=== PATIENT | female | born 1965 | race Caucasian/White ===

== ENCOUNTER → 2016-11-03 | Outpatient (CLI) | payer BC ==
[2016-11-03 13:25] LABS: Follicle Stimulating Hormone 10.3 mIU/mL
== END | disposition home or self-care (01) ==
LOC: LABWHC1 07:16
PROVIDERS: ATTEND Obstetrics & Gynecology
DX: N95.0 Postmenopausal bleeding (principal)
CPT/HCPCS: 36415; 82670; 83001

== ENCOUNTER → 2019-08-12 | Day surgery (SDC) | payer BC ==
[2019-08-08 15:08] VITALS: BMI 21.1
--- NOTE | 2019-08-11 21:57 | HP ---
HISTORY AND PHYSICAL DIAGNOSES: Bilateral renal stones, recurrent urinary tract infection. PROCEDURE TO BE PERFORMED.: Shockwave lithotripsy right. HISTORY: Dai Reyes is a pleasant 54-year-old female. She has a history of recurrent urinary tract infections. She recently was in the hospital with a question of a kidney infection. She had percutaneous nephrostolithotomy in 2013. She had x-rays identifying 1.2 cm stone in the left lower pole and a 9 mm stone in the right middle pole. There is question of whether these stones are infected. She has been recently on antibiotics. In light of the recurrent infection, no obvious cause of infection, persistence of stones, we are going to try to remove the stones. She comes for right- sided shockwave lithotripsy. PAST MEDICAL HISTORY: ALLERGIES: None. MEDICATIONS: Bactrim and iron. PREVIOUS SURGICAL HISTORY: Includes percutaneous nephrostolithotomy. MEDICAL ILLNESSES: Positive for urinary tract infection. The most recent being E. coli in May and June of this past year. Past medical history of allergies none. Medical history as mentioned, surgical history as mentioned earlier. Review of systems negative. REVIEW OF SYSTEMS: Negative. PHYSICAL EXAMINATION: On examination, pleasant white female. VITAL SIGNS: Stable. Blood pressure is 118/78, pulse 98, respiration 14. 67 inches, 141 pounds. HEENT exam is clear. CHEST: Clear to auscultation. Heart is without murmur or gallop. ABDOMEN: Soft. No organomegaly. EXTREMITIES: No edema. Neurologic examination grossly intact. IMPRESSION: This patient has bilateral renal stones. She comes for right-sided shockwave lithotripsy. MMODL / IJN: [id number] /
[~2019-08-12] MED LIST: KETAMINE 10 MG/ML 20 ML VIAL ONE; LACTATED RINGERS 1,000 ML IV SCH; LIDOCAINE 1% (10MG/ML) FOR IV START INTRADERMA PRN; LIDOCAINE 1% INJ 10MG/ML (20 ML MDV) ONE; MIDAZOLAM 2 MG/2 ML VIAL ONE; ONDANSETRON 4 MG/2 ML VIAL IVP ONE; PROPOFOL 10 MG/ML 20 ML VIAL IV ONE; Pre Op ABX Message 1 EACH MISC MISCELLANE ONE; fentaNYL (PF) 50 MCG/ML 2 ML AMP ONE
[2019-08-12 08:57] VITALS: RESP 16; TEMP 96.8
--- NOTE | 2019-08-12 10:40 | P.OP ---
Date of Procedure: 08/12/19 Preoperative Diagnosis: right sided renal stones Postoperative Diagnosis: same Procedure(s) Performed: right ESWL Implants: none Anesthesia: NAVA Surgeon: Ronnie Dillard Estimated Blood Loss (ml): 0 Pathology: none sent Condition: stable Disposition: PACU Indications for Procedure: Ms Reyes is 54 yo with hx of bilateral renal stone, she presents today to address her right sided renal calculi. She is symptomatic from her stones. I discussed the option of ESWL. She agreed to proceed with ESWL, I discussed with her risk which includes bleeding, infection, renal hematoma, potential need for repeated treatment. I also discussed with her the risk from anesthesia. I also discussed with her potential that we might need repeated treatment to completely address her right sided stone burden. She understood all risks and agreed to proceed Operative Findings: right sided radioopaque renal stone Description of Procedure: The patient was taken to the operating room and placed on the Dornier Compact Delta lithotripter in the supine position. The calculus was seen on biplanar fluoroscopy. Once the patient was properly positioned and sedated, lithotripsy was performed. The energy level was gradually increased per protocol, to an energy level of 4 for first 1800 shocks, then increased to 5 for the additional 700 shocks. A total of 2500 shocks were given at a rate of 80 shocks per minute. Fluoroscopy was utilized at a minimum to ensure proper positioning and determine the treatment status. There was good fragmentation of stone . The patient tolerated the procedure well was taken to the recovery room in stable condition. Instructions were given to strain the urine, and the patient will follow-up with Dr. Burciaga in one week.
[2019-08-12 11:15] VITALS: BP 119/81; PULSE 83
--- NOTE | 2019-08-12 14:08 | XR ---
KUB HISTORY: Preop lithotripsy Frontal KUB submitted and correlated to prior abdomen 08/20/2013 Oval calcification is present overlying the left renal pelvis measuring 17 mm. There is an oval calci fication overlying the right kidney midpole region measuring 11 mm. Overlying bowel gas obscures unde rlying detail. Retained fecal debris may be indicative of constipation. No pneumoperitoneum or bowel obstruction. Bone mineralization is normal. IMPRESSION: Suspect bilateral nephrolithiasis
== END ==
LOC: ORWHC2ENDO 08:10
PROVIDERS: ATTEND Urology
DX: N20.0 Calculus of kidney (principal); N39.0 Urinary tract infection, site not specified; Z87.440 Personal history of urinary (tract) infections; Z98.890 Other specified postprocedural states
CPT/HCPCS: 81025; 74018; 50590; J2250; J2405; J2001; J3010; J2704

== ENCOUNTER → 2019-08-22 | Outpatient (CLI) | payer BC ==
--- NOTE | 2019-08-22 08:32 | XR ---
EXAMINATION TYPE: XR KUB DATE OF EXAM: 08/22/2019 COMPARISON: 08/12/2019 INDICATION: Renal calculus TECHNIQUE: Single view abdomen frontal projection FINDINGS: There is an normal bowel gas pattern. Fecal debris is within the colon. Psoas margins are normal. No organomegaly is present. There is a 1.7 cm oval calcification overlying the inferior pole left kidney. This is changed positio n with some rotation but is otherwise stable. Previous right and suspected calcification is not evide nt at this time. No additional suspicious calcifications are present. IMPRESSION: 1. Stable 1.7 cm calcification inferior pole left kidney with some rotation in position.
== END | disposition home or self-care (01) ==
LOC: RADXRMAIN 08:14
PROVIDERS: ATTEND Urology
DX: N20.0 Calculus of kidney (principal)
CPT/HCPCS: 74018

== ENCOUNTER → 2019-10-31 | Outpatient (CLI) | payer BC ==
--- NOTE | 2019-10-31 11:54 | XR ---
EXAMINATION TYPE: XR KUB DATE OF EXAM: 10/31/2019 COMPARISON: 08/22/2019 INDICATION: Left renal stone TECHNIQUE: Single view abdomen frontal supine view FINDINGS: There is a normal bowel gas pattern. Psoas margins are normal. No organomegaly is present. There is a 1.8 x 1.0 cm calcification over the left renal pelvic region this may have moved slightly from the comparison study. No additional suspicious calcifications are present. IMPRESSION: 1. Calcification in the region of the left renal pelvis.
== END | disposition home or self-care (01) ==
LOC: RADXRMAIN 10:44
PROVIDERS: ATTEND Urology
DX: N28.89 Other specified disorders of kidney and ureter (principal)
CPT/HCPCS: 74018

== ENCOUNTER → 2019-11-29 | Outpatient (CLI) | payer BC ==
[2019-11-29 07:58] LABS: Basophils % (A) 1 %; Eosinophils # (A) 0.2 k/uL (0-0.7); Eosinophils % (A) 3 %; HCT 39.5 % (34.0-46.0); HGB 12.1 gm/dL (11.4-16.0); Lymphocytes # (A) 1.6 k/uL (1.0-4.8); Lymphocytes % (A) 30 %; MCH 28.4 pg (25.0-35.0); MCHC 30.5 g/dL (31.0-37.0); Mean Platelet Volume 9.7; Monocytes # (A) 0.4 k/uL (0-1.0); Monocytes % (A) 7 %; Neutrophils # (A) 3.2 k/uL (1.3-7.7); Neutrophils % (A) 58 %; Platelet Count 209 k/uL (150-450); RBC 4.25 m/uL (3.80-5.40); RDW 13.6 % (11.5-15.5); WBC 5.5 k/uL (3.8-10.6)
[2019-11-29 08:02] LABS: Appearance,Urine Cloudy (Clear); Bacteria,Urine Rare /hpf; Bilirubin,Urine Negative (Negative); Blood,Urine Small (Negative); Color,Urine Yellow; Glucose,Urine (UA) Negative (Negative); Hyaline Casts,Urine 7 /lpf (0-2); Ketones,Urine Negative (Negative); Leukocyte Esterase,Urine Large (Negative); Mucus,Urine Moderate /hpf; Nitrite,Urine Positive (Negative); Protein,Urine 2+ (Negative); RBC,Urine 41 /hpf (0-5); Specific Gravity,Urine 1.019 (1.001-1.035); Squamous Epithelial Cell,Urine 1 /hpf (0-4); Urobilinogen,Urine <2.0 mg/dL (<2.0); WBC,Urine >182 /hpf (0-5)
[2019-11-29 08:11] LABS: Albumin 3.9 g/dL (3.5-5.0); Calcium 9.3 mg/dL (8.4-10.2); Potassium 4.2 mmol/L (3.5-5.1); Total Bilirubin 0.3 mg/dL (0.2-1.3); Total Protein 6.6 g/dL (6.3-8.2)
== END | disposition home or self-care (01) ==
LOC: LABPAT 07:10
PROVIDERS: ATTEND Urology
DX: Z01.818 Encounter for other preprocedural examination (principal); N20.0 Calculus of kidney
CPT/HCPCS: 36415; 80053; 81001; 85025; 87077; 87086; 87186

== ENCOUNTER 2019-12-11 06:27 | Observation (INO) | payer BC ==
[2019-12-09 10:33] VITALS: BMI 21.1
--- NOTE | 2019-12-10 12:15 | P.GSHP ---
History of Present Illness H&P Date: 12/10/19 54 yo female with a histroy of stones with an 18mm left renal pelvic stone identified on ct scan at [facility] She comes for a pcnl left the alternatives and risks havee been discussed including injury to the adjacent organs,failure to remove all the stone, bleeding infeection and kidney injury have been explained understood and accepted. - Constitutional Constitutional: Denies chills, Denies fever - EENT Eyes: denies blurred vision, denies pain Ears, nose, mouth and throat: Denies headache, Denies sore throat - Cardiovascular Cardiovascular: Denies chest pain, Denies shortness of breath - Respiratory Respiratory: Denies cough, Denies 7 - Gastrointestinal Gastrointestinal: Denies abdominal pain, Denies diarrhea, Denies nausea, Denies vomiting - Genitourinary (Female) Genitourinary: Denies dysuria, Denies hematuria - Genitourinary (Male) Genitourinary: Denies dysuria, Denies hematuria - Musculoskeletal Musculoskeletal: Denies myalgias - Integumentary Integumentary: Denies pruritus, Denies rash - Neurological Neurological: Denies numbness, Denies weakness - Psychiatric Psychiatric: Denies anxiety, Denies depression - Endocrine Endocrine: Denies fatigue, Denies weight change Past Medical History Past Medical History: Cancer Additional Past Medical History / Comment(s): HX OF BREAST CANCER WITH LUMPECTOMY & RADIATION (2011), KIDNEY STONES, LOW IRON/anemia, on rx for UTI History of Any Multi-Drug Resistant Organisms: None Reported Past Surgical History: Breast Surgery Additional Past Surgical History / Comment(s): SURGERY FOR KIDNEY STONES (2013), rt breast lumpectomy, lithotripsy Past Anesthesia/Blood Transfusion Reactions: Postoperative Nausea & Vomiting (PONV) Past Psychological History: No Psychological Hx Reported Past Alcohol Use History: Occasional Past Drug Use History: None Reported - Past Family History Mother Family Medical History: No Reported History Medications and Allergies Home Medications Medication Instructions Recorded Confirmed Type Sulfamethox-Tmp 800-160Mg [Bactrim 1 tab PO Q12HR 12/10/19 12/10/19 History DS 800-160 mg] Allergies Allergy/AdvReac Type Severity Reaction Status Date / Time No Known Allergies Allergy Verified 12/09/19 10:26 Surgical - Exam - General well developed, well nourished, no distress - Eyes PERRL - ENT no hearing loss - Neck trachea midline - Respiratory normal expansion, normal respiratory effort - Cardiovascular Rhythm: regular - Abdomen Abdomen: soft, non tender - Integumentary no rash, no growths - Neurologic normal coordination, normal sensation - Musculoskeletal normal gait, normal posture - Psychiatric oriented to time, oriented to person, oriented to place, speech is normal, memory intact Results - Imaging Abdominal x-ray: report reviewed, image reviewed CT scan - abdomen: report reviewed, image reviewed CT scan - pelvis: report reviewed, image reviewed Assessment and Plan Assessment: Impression: left renal stone PLan pcnl left
[~2019-12-11 06:27] MED LIST changes: +AMPICILLIN 1,000 MG in SODIUM CHLORIDE 0.9% 50 ML IVPB ONE; +DEXAMETHASONE SOD PHOSPHATE 10 MG/ML 1 ML VIAL IV ONE; +HYDROmorphone 0.5 MG/0.5 ML SYRINGE IVP PRN; -KETAMINE 10 MG/ML 20 ML VIAL ONE; -LIDOCAINE 1% INJ 10MG/ML (20 ML MDV) ONE; +MIDAZOLAM 2 MG/2 ML VIAL IV PRN; -MIDAZOLAM 2 MG/2 ML VIAL ONE; -PROPOFOL 10 MG/ML 20 ML VIAL IV ONE; -Pre Op ABX Message 1 EACH MISC MISCELLANE ONE; +fentaNYL (PF) 50 MCG/ML 2 ML AMP IVP PRN; -fentaNYL (PF) 50 MCG/ML 2 ML AMP ONE
[2019-12-11] MEDS ORDERED: ONDANSETRON 4 MG/2 ML VIAL ONE (07:08)
[2019-12-11] MEDS ORDERED: GLYCOPYRROLATE 0.2 MG/ML 2 ML VIAL ONE (07:50)
[2019-12-11] MEDS ORDERED: SUCCINYLCHOLINE CHLORIDE 100 MG/5 ML SYR IV ONE (07:50)
[2019-12-11] MEDS ORDERED: PROPOFOL 10 MG/ML 20 ML VIAL IV ONE (07:50)
[2019-12-11] MEDS ORDERED: fentaNYL (PF) 50 MCG/ML 2 ML AMP ONE (07:50)
[2019-12-11] MEDS ORDERED: MIDAZOLAM 2 MG/2 ML VIAL ONE (07:50)
[2019-12-11] MEDS ORDERED: ROCURONIUM BROMIDE 10 MG/ML 5 ML VIAL IV ONE (07:50)
[2019-12-11] MEDS ORDERED: NEOSTIGMINE 1 MG/ML 10 ML VIAL ONE (07:50)
[2019-12-11] MEDS ORDERED: LIDOCAINE 1% INJ 10MG/ML (20 ML MDV) ONE (07:50)
--- NOTE | 2019-12-11 08:15 | XR ---
KUB HISTORY: Kidney stones KUB and 2 images Correlated to prior KUB 10/31/2019 The exam is stable. There is a large amount of retained fecal debris present. Oval calcification supe rimposed of the left renal pelvis is unchanged. No pneumoperitoneum or bowel obstruction. IMPRESSION: Left nephrolithiasis.
[2019-12-11] MEDS: GENTAMICIN 90 MG in SODIUM CHLORIDE 0.9% 100 ML IVPB ONE ×3 (08:30→08:40)
[2019-12-11] MEDS ORDERED: IOPAMIDOL-370 50ML BTL MISCELLANE ONE (08:31)
[2019-12-11] MEDS ORDERED: LACTATED RINGERS 1,000 ML IV ONE (08:57)
[2019-12-11] MEDS ORDERED: MAG HYDROX/AL HYDROX/SIMETH 30 ML CUP PO PRN (09:06)
[2019-12-11] MEDS ORDERED: ACETAMINOPHEN TAB 325 MG TAB PO PRN (09:06)
[2019-12-11] MEDS ORDERED: ONDANSETRON 4 MG/2 ML VIAL IVP PRN (09:06)
[2019-12-11] MEDS ORDERED: HYDROmorphone PCA 10 MG/50 ML BAG IV PRN (09:08)
[2019-12-11] MEDS ORDERED: NALOXONE 0.4 MG/ML 1 ML VIAL IV PRN (09:08)
--- NOTE | 2019-12-11 09:13 | P.OP ---
Date of Procedure: 12/11/19 Preoperative Diagnosis: Left renal calculus Postoperative Diagnosis: Same Procedure(s) Performed: Cystoscopy, placement of occluding balloon catheter left, percutaneous nephrostomy tube placement (Dr. Funes) percutaneous nephrostolithotomy at ultrasound, placement of 10 J nephrostomy Anesthesia: NAVA Surgeon: Jerzy Burciaga Estimated Blood Loss (ml): 50 Pathology: other (Stone) Condition: stable Disposition: PACU Indications for Procedure: The patient is 54. She has a history of kidney stones. She has a 17 and 18 mm UPJ stone. She comes for percutaneous nephrostolithotomy left Description of Procedure: Patient is brought to the operating suite. She is given a general endotracheal anesthesia on the transport gurney. She's placed in a frog position with a sterile prep and drape. Cystoscopy with a Foroblique lens and 22-Malaysian sheath identifies a normal urethra. There is chronic cystitis cystica on the floor the bladder. The left ureteral orifice is identified and intubated with a 5-Malaysian occluding balloon catheter that's passed up into the renal pelvis A Ortiz catheters placed and secured to the ureteral catheter She's placed in a prone position with care to airways and extremities. Dr. Funes of radiology performed percutaneous nephrostomy access to the left lower pole calyx. I dilate the tract to 30-Malaysian. I introduced the rigid nephroscope into the collecting system. I irrigate out CLOT. With ultrasound the left renal pelvic stone was identified fractured and the larger pieces are removed. At the end of procedure looked throughout the collecting system there is no remaining stone. A 10-Malaysian J nephrostomy tubes placed over the working wire and secured to the skin. The patient's awake and returned recovery in good condition. The stone we sent to pathology. Blood loss is less than 50 mL. She tolerated procedure well and will be observed in the hospital overnight.
[2019-12-11] MEDS: DEXTROSE 5%-0.45% NACL 1,000 ML IV SCH ×2 (10:35→18:31)
--- NOTE | 2019-12-11 10:35 | FL ---
EXAMINATION TYPE: FL Perc Nephrostomy New Access DATE OF EXAM: 12/11/2019 COMPARISON: CT 2014 HISTORY: Left renal pelvic calcification. PROCEDURE: Maximal barrier technique was utilized, hand hygiene obtained with soap and water and alcohol-based h and rub. The skin overlying the left kidney was localized using fluoroscopy and the overlying skin p repped and draped. Skin sacha was made with a scalpel. Access was gained under fluoroscopy, following placement of a ureteral occlusion balloon by the referring clinician and instillation of air in the renal collecting system with a 21-gauge needle to the left kidney. A suitable posterior calyx was ch osen. A 0.018 inch wire was advanced. The access site was dilated , access site was upsized, safet y wire deployed and subsequently a sheath was advanced into the renal pelvis following dilation with balloon along the tract. The patient underwent nephrolithotomy by the referring clinician. The mohit ent remained in stable condition without complication. The patient was discharged to observation in the care of anesthesia. 4 minutes 16 seconds fluoroscopy time, 3 intraoperative images document the procedure IMPRESSION: STATUS POST NEPHROSTOMY PLACEMENT FOR NEPHROLITHOTOMY WITH FLUOROSCOPIC GUIDANCE. THIS PROCEDURE PER FORMED BY THE UNDERSIGNED.
[2019-12-11] MEDS: SULFAMETHOX-TMP 800-160MG 1 EACH TAB PO SCH (19:41)
[2019-12-11] MEDS: KETOROLAC 30 MG/ML 1 ML VIAL IVP PRN (19:41)
[2019-12-11 21:02] VITALS: RESP 18
[2019-12-12] MEDS: DEXTROSE 5%-0.45% NACL 1,000 ML IV SCH (06:26)
[2019-12-12] MEDS: SULFAMETHOX-TMP 800-160MG 1 EACH TAB PO SCH (08:17)
[2019-12-12] MEDS: KETOROLAC 30 MG/ML 1 ML VIAL IVP PRN (08:17)
--- NOTE | 2019-12-12 08:17 | P.DS ---
Providers Date of admission: 12/11/19 23:14 Expected date of discharge: 12/12/19 Attending physician: Jerzy Burciaga Primary care physician: Leonard Dowling MD Hospital Course: The patient is a 54-year-old female who was discovered to have a 18 millimeter calculus in the left renal pelvis. In view of the size of the calculus percutaneous nephrostolithotomy was recommended. The patient was admitted on 12/10 and underwent left percutaneous nephrostolithotomy performed by Dr. Burciaga. A nephrostomy catheter was left following the procedure. The patient remained afebrile and relatively comfortable following the procedure. She was ambulatory and tolerating a diet the time of discharge on the first day postop. The nephrostomy tube will remain in place until she is seen by Dr. Burciaga next week. She was started on Bactrim prior to the procedure and will continue this until she is seen in the office. Procedures: Left percutaneous nephrostolithotomy 12/11/2019 Patient Condition at Discharge: Good Plan - Discharge Summary Discharge Rx Participant: No New Discharge Prescriptions: No Action Sulfamethox-Tmp 800-160Mg [Bactrim DS 800-160 mg] 1 tab PO Q12HR Discharge Medication List Sulfamethox-Tmp 800-160Mg [Bactrim DS 800-160 mg] 1 tab PO Q12HR 12/10/19 [History] Follow up Appointment(s)/Referral(s): Jerzy Burciaga MD [STAFF PHYSICIAN] - 12/16/19 Patient Instructions/Handouts: Hydromorphone (By injection), Percutaneous Nephrolithotomy (DC), Fibromyalgia (ED), Patient Controlled Analgesia (GEN), Pain Management After Surgery (GEN) Discharge Disposition: HOME SELF-CARE
[2019-12-12 09:06] VITALS: BP 97/52; PULSE 79; TEMP 97.8
== END 2019-12-12 11:33 | disposition home or self-care (01) ==
LOC: OR 06:27 → 6PED 09:34 → OR 23:42
PROVIDERS: ADMIT Urology; ATTEND Urology
DX: N20.0 Calculus of kidney (principal); N30.20 Other chronic cystitis without hematuria; Z85.3 Personal history of malignant neoplasm of breast; Z98.890 Other specified postprocedural states; Z92.3 Personal history of irradiation; Z87.442 Personal history of urinary calculi; Z86.2 Personal history of diseases of the blood and blood-forming organs and certain disorders involving the immune mechanism; Z91.89 Other specified personal risk factors, not elsewhere classified
CPT/HCPCS: 81025; 86900; 86901; 86850; 82365; 50432; 74018; 50080; 52000; G0378 ×2; C1769 ×4; C2628; C1729 ×2; C1894; J2250; J1100; J2710; J2405; J2001; J3010; J1885 ×2; J1580; J0290; J0330; J2704; J1170 ×2; Q9967

== ENCOUNTER → 2021-01-28 | Outpatient (CLI) | payer BC ==
--- NOTE | 2021-01-29 08:43 | XR ---
EXAMINATION TYPE: XR KUB DATE OF EXAM: 01/28/2021 HISTORY: Pain Comparison: 12/11/2019 Single KUB is submitted for interpretation. Findings: Right renal calculi: None Visualized. Right ureteral calculi: None Visualized. Left renal calculi: 4.3 mm calculus overlies the left kidney. Previously noted large calculus is no longer present. Left ureteral calculi: None Visualized. Pelvic calcifications: None Visualized. Bowel gas pattern is unremarkable. No free air. No mass effects. IMPRESSION: 1. 4.3 mm calculus left kidney.
== END | disposition home or self-care (01) ==
LOC: RADXRMAIN 16:52
PROVIDERS: ATTEND Urology
DX: N20.0 Calculus of kidney (principal)
CPT/HCPCS: 74018

== ENCOUNTER → 2021-02-08 | Outpatient (CLI) | payer BC ==
[2021-02-08 12:46] LABS: Basophils % (A) 1 %; Eosinophils # (A) 0.1 k/uL (0-0.7); Eosinophils % (A) 2 %; HCT 42.3 % (34.0-46.0); HGB 13.9 gm/dL (11.4-16.0); Lymphocytes # (A) 1.8 k/uL (1.0-4.8); Lymphocytes % (A) 24 %; MCH 31.2 pg (25.0-35.0); MCV 94.8 fL (80.0-100.0); Mean Platelet Volume 9.2; Monocytes # (A) 0.3 k/uL (0-1.0); Monocytes % (A) 4 %; Neutrophils # (A) 5.2 k/uL (1.3-7.7); Neutrophils % (A) 69 %; Platelet Count 217 k/uL (150-450); RBC 4.46 m/uL (3.80-5.40); WBC 7.7 k/uL (3.8-10.6)
[2021-02-08 13:01] LABS: Potassium 4.3 mmol/L (3.5-5.1)
[2021-02-08 13:06] LABS: Appearance,Urine Cloudy (Clear); Bilirubin,Urine Negative (Negative); Blood,Urine Trace (Negative); Calcium Oxalate Crystals,Urine Occasional /hpf; Color,Urine Yellow; Glucose,Urine (UA) Negative (Negative); Ketones,Urine Negative (Negative); Leukocyte Esterase,Urine Moderate (Negative); Mucus,Urine Few /hpf; Nitrite,Urine Negative (Negative); PH, Urine 5.5 (5.0-8.0); Protein,Urine Trace (Negative); RBC,Urine 6 /hpf (0-5); Specific Gravity,Urine 1.022 (1.001-1.035); Squamous Epithelial Cell,Urine 10 /hpf (0-4); Urobilinogen,Urine <2.0 mg/dL (<2.0); WBC,Urine 23 /hpf (0-5)
== END | disposition home or self-care (01) ==
LOC: LABPAT 12:02
PROVIDERS: ATTEND Urology
DX: Z01.812 Encounter for preprocedural laboratory examination (principal); N20.0 Calculus of kidney; R31.29 Other microscopic hematuria
CPT/HCPCS: 36415; 80051; 81001; 82565; 84520; 85025; 87086

== ENCOUNTER 2021-02-15 08:18 | Day surgery (SDC) | payer BC ==
[2021-02-12 08:49] VITALS: BMI 21.1
--- NOTE | 2021-02-14 18:49 | P.GSHP ---
History of Present Illness H&P Date: 02/14/21 55 yo female with a history of caox stones who has had intermittent left flank pain A kub identified a 5 mm stone in the left renal pelvis. SHe comes for eswl left. the risks complications and alternatives have been discussed.. - Constitutional Constitutional: Denies chills, Denies fever - EENT Eyes: denies blurred vision, denies pain Ears, nose, mouth and throat: Denies headache, Denies sore throat - Cardiovascular Cardiovascular: Denies chest pain, Denies shortness of breath - Respiratory Respiratory: Denies cough, Denies 7 - Gastrointestinal Gastrointestinal: Denies abdominal pain, Denies diarrhea, Denies nausea, Denies vomiting - Genitourinary (Female) Genitourinary: Denies dysuria, Denies hematuria - Genitourinary (Male) Genitourinary: Denies dysuria, Denies hematuria - Musculoskeletal Musculoskeletal: Denies myalgias - Integumentary Integumentary: Denies pruritus, Denies rash - Neurological Neurological: Denies numbness, Denies weakness - Psychiatric Psychiatric: Denies anxiety, Denies depression - Endocrine Endocrine: Denies fatigue, Denies weight change Past Medical History Past Medical History: Cancer Additional Past Medical History / Comment(s): HX OF BREAST CANCER WITH LUMPECTOMY & RADIATION (2011), KIDNEY STONES, LOW IRON History of Any Multi-Drug Resistant Organisms: None Reported Past Surgical History: Breast Surgery Additional Past Surgical History / Comment(s): LITHOTRIPSY AND NEPHROLITHOTOMY Past Anesthesia/Blood Transfusion Reactions: Postoperative Nausea & Vomiting (PONV) Past Psychological History: No Psychological Hx Reported Smoking Status: Never smoker Past Alcohol Use History: Occasional Past Drug Use History: None Reported - Past Family History Mother Family Medical History: No Reported History Medications and Allergies Home Medications Medication Instructions Recorded Confirmed Type No Known Home Medications 02/12/21 02/12/21 History Allergies Allergy/AdvReac Type Severity Reaction Status Date / Time No Known Allergies Allergy Verified 02/12/21 08:34 Surgical - Exam - General well developed, well nourished, no distress - Eyes PERRL - ENT no hearing loss - Neck trachea midline - Respiratory normal expansion, normal respiratory effort - Cardiovascular Rhythm: regular - Abdomen Abdomen: soft, non tender - Neurologic normal coordination, normal sensation - Musculoskeletal normal gait, normal posture - Psychiatric oriented to time, oriented to person, oriented to place, speech is normal, memory intact Results - Imaging Abdominal x-ray: report reviewed, image reviewed Assessment and Plan Assessment: Impression: Painful left renal stone Plan: eswl left
[~2021-02-15 08:18] MED LIST changes: -AMPICILLIN 1,000 MG in SODIUM CHLORIDE 0.9% 50 ML IVPB ONE; -DEXAMETHASONE SOD PHOSPHATE 10 MG/ML 1 ML VIAL IV ONE; -LIDOCAINE 1% (10MG/ML) FOR IV START INTRADERMA PRN; -ONDANSETRON 4 MG/2 ML VIAL IVP ONE; -fentaNYL (PF) 50 MCG/ML 2 ML AMP IVP PRN
[2021-02-15] MEDS ORDERED: ONDANSETRON 4 MG/2 ML VIAL ONE (08:52)
[2021-02-15 08:56] VITALS: TEMP 97
[2021-02-15] MEDS ORDERED: DEXAMETHASONE SOD PHOSPHATE 4 MG/ML 1 ML VIAL IVP ONE (09:08)
[2021-02-15] MEDS ORDERED: SCOPOLAMINE 1.5MG/72HR PATCH TRANSDERM ONE (09:08)
[2021-02-15] MEDS ORDERED: fentaNYL (PF) 50 MCG/ML 2 ML AMP ONE (09:49)
[2021-02-15] MEDS ORDERED: MIDAZOLAM 2 MG/2 ML VIAL ONE (09:49)
[2021-02-15] MEDS ORDERED: PROPOFOL 10 MG/ML 20 ML VIAL IV ONE (09:49)
--- NOTE | 2021-02-15 10:09 | P.OP ---
Date of Procedure: 02/15/21 Preoperative Diagnosis: Renal stone,left Postoperative Diagnosis: Same Procedure(s) Performed: ESWL, 1250 shocks at energy level IV Anesthesia: MAC Surgeon: Jerzy Burciaga Estimated Blood Loss (ml): 0 Pathology: none sent Condition: stable Disposition: PACU Indications for Procedure: The patient is 55. She has kidney stones. She has a 5 mm left lower pole stone causing pain. She comes for shockwave lithotripsy Description of Procedure: Patient is brought to the operating suite. She is given IV sedation. The stone was seen in 2 views of fluoroscopy. A 1250 shocks at energy level or administered. The stone fractures nicely. Then the procedure the patient's awake and returned recovery in good condition. She'll be discharged home upon recovery and found the office on KUB.
[2021-02-15 10:23] VITALS: RESP 16
--- NOTE | 2021-02-15 10:27 | XR ---
EXAMINATION TYPE: XR KUB DATE OF EXAM: 02/15/2021 Comparison: 01/28/2021 Clinical History: 55-year-old female preop KUB for 02/15/21 Findings: 5 mm calcification redemonstrated left mid abdomen. Bowel content largely obscures the right renal sh adow. Mild stool burden. Small phlebolith right side of the pelvis. Nonobstructive bowel gas pattern. Surgical clips right breast. Impression: Redemonstrated 5 mm left renal calculus.
[2021-02-15 10:46] VITALS: BP 124/62
[2021-02-15 11:23] VITALS: PULSE 75
== END 2021-02-15 11:33 | disposition home or self-care (01) ==
LOC: ORWHC2ENDO 08:18
PROVIDERS: ATTEND Urology
DX: N20.0 Calculus of kidney (principal)
CPT/HCPCS: 50590; 74018; J2250; J1100; J2405; J3010; J2704

== ENCOUNTER → 2021-02-23 | Outpatient (CLI) | payer BC ==
--- NOTE | 2021-02-23 07:59 | XR ---
EXAMINATION TYPE: XR KUB DATE OF EXAM: 02/23/2021 HISTORY: Pain Comparison: 02/15/2021ingle KUB is submitted for interpretation. Findings: Right renal calculi: None Visualized. Right ureteral calculi: None Visualized. Left renal calculi: Previously noted left renal calculus is not clearly visualized. Overlying bowel content limits evaluation. Left ureteral calculi: None Visualized. Pelvic calcifications: None Visualized. Bowel gas pattern is unremarkable. No free air. No mass effects. IMPRESSION: 1. Previously noted left renal calculus is not clearly visualized. Overlying bowel content limits silvestre luation.
== END | disposition home or self-care (01) ==
LOC: RADXRMAIN 07:32
PROVIDERS: ATTEND Urology
DX: R10.9 Unspecified abdominal pain (principal)
CPT/HCPCS: 74018

== ENCOUNTER → 2023-12-12 | Outpatient (CLI) | payer BC ==
[2023-12-12 15:15] VITALS: BP 107/71; PULSE 66; RESP 12; TEMP 98
--- NOTE | 2023-12-12 15:58 | P.SLEEP ---
History of Present Illness H&P Date: 12/12/23 This is a 58-year-old female patient who was referred to me for sleep apnea evaluation. Patient has snoring and her has been complaining about excessive snore and she has not been told the same thing by friends and other family members. She goes to bed around 11:30 PM and she wakes up 6 AM in the morning. 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 No major tiredness or fatigue or sleepiness during the day. She is functional and she is able to complete her task on the job without having to fall asleep. She does not fall asleep while driving. No history of any motor vehicle accident because of feeling drowsy or sleepy. No intake of any stimulants. She wears a retainer for teeth alignment and grinding. She is a mouth breather when she complains of a dry mouth in the morning. She has occasionally hurt herself snore. She denies having any choking or gasping for air in the middle of the night. No nighttime heartburn or chest pain or shortness of breath. No major medical problems and comorbidities. Her weight is up by around 10 pounds over the past 1 years. His current Dousman score is at 9. No issues with memory or concentration. No anxiety. No depression. No sleep paralysis. No hallucinations. No cataplexy. No other complaints otherwise. Review of Systems Constitutional: Reports fatigue Eyes: denies as per HPI, denies blurred vision, denies bulging eye, denies decreased vision, denies diplopia, denies discharge, denies dry eye, denies irritation, denies itching, denies pain, denies photophobia, denies loss of peripheral vision, denies loss of vision, denies tunnel vision/blind spots Ears: deny: decreased hearing, ear discharge, earache, tinnitus Ears, nose, mouth and throat: Reports as per HPI Breasts: absent: as per HPI, change in shape, gynecomastia, masses, nipple discharge, pain, skin changes, swelling Cardiovascular: Reports as per HPI Respiratory: Reports snoring Gastrointestinal: Reports as per HPI Genitourinary: Reports as per HPI Menstruation: Reports as per HPI Musculoskeletal: Reports as per HPI Musculoskeletal: absent: ankle pain, ankle stiffness, ankle swelling, as per HPI, elbow pain, elbow stiffness, elbow swelling, foot pain, foot stiffness, foot swelling, hand pain, hand stiffness, hand swelling, hip pain, hip stiffn ess, hip swelling, knee pain, knee stiffness, knee swelling, shoulder pain, shoulder stiffness, shoulder swelling, wrist pain, wrist stiffness, wrist swelling Integumentary: Reports as per HPI Neurological: Reports as per HPI Psychiatric: Reports as per HPI Endocrine: Reports as per HPI Hematologic/Lymphatic: Reports as per HPI Allergic/Immunologic: Reports as per HPI Past Medical History Past Medical History: Cancer Additional Past Medical History / Comment(s): HX OF BREAST CANCER WITH LUMPECTOMY & RADIATION (2011), KIDNEY STONES, LOW IRON History of Any Multi-Drug Resistant Organisms: None Reported Past Surgical History: Breast Surgery, Hysterectomy Additional Past Surgical History / Comment(s): SURGERY FOR KIDNEY STONES (2013) Past Anesthesia/Blood Transfusion Reactions: Postoperative Nausea & Vomiting (PONV) Past Psychological History: No Psychological Hx Reported Smoking Status: Never smoker Past Alcohol Use History: Occasional Past Drug Use History: None Reported - Past Family History Mother Family Medical History: No Reported History Medications and Allergies Home Medications Medication Instructions Recorded Confirmed Type No Known Home Medications 02/12/21 02/15/21 History Allergies Allergy/AdvReac Type Severity Reaction Status Date / Time No Known Allergies Allergy Verified 02/15/21 08:43 Physical Exam Vitals: Vital Signs Temp Pulse Resp BP Pulse Ox 12/12/23 15:12 98.0 F 66 12 107/71 99 Intake and Output 12/12/23 12/12/23 12/12/23 06:59 14:59 22:59 Other: Weight 64.41 kg The patient appeared well nourished and normally developed. Vital signs as documented. Head exam is unremarkable. No scleral icterus or corneal arcus noted. Neck is without jugular venous distension, thyromegaly, or carotid bruits . Carotid upstrokes are brisk bilaterally. The patient is a Mallampati class III. No significant overbite. No micrognathia. Lungs are clear to auscultation and percussion. Cardiac exam reveals the PMI to be normally sized and situated. Rhythm is regular. First and second heart sounds normal. No murmurs, rubs or gallops. Abdominal exam reveals normal bowel sounds, no masses, no organomegaly and no aortic enlargement. Extremities are nonedematous and both femoral and pedal pulses are normal. Examination of the skin revealed no evidence of significant rashes, suspicious appearing nevi or other concerning lesions. Neurologically, the patient is awake and alert and the patient does not have any focal neurological deficit. Cranial nerves are essentially intact. Assessment and Plan Plan: Snoring with suspected obstructive sleep apnea. Patient is coming in for further investigation due to concerns of sleep apnea. Mallampati class III Chronic fatigue and limited sleepiness with an Dousman score of 9 History of breast cancer History of kidney stones Plan Encourage weight loss and the patient is gained around 10 pounds over the past 1 year. Sleep on his side and keep the bed elevated up around 10 to 20 degrees Principles of good sleep hygiene measures were discussed The patient is having mild sleep fragmentation and limited hypersomnia sleepiness during the day. She has adequate functionality during the day. Will do a home sleep study to evaluate this patient for sleep apnea and make further recommendations based on those results. The patient is already wearing a retainer for grinding. She may benefit from an oral appliance should there be some mild sleep apnea present on the home sleep study. Will continue to follow. Sleep Note - Sleep Data ESS Total: 9 - Sleep Note Sleep Note: Temperature: 98.0 F Pulse Rate: 66 Respiratory Rate: 12 Blood Pressure: 107/71 SpO2: 99 Height: 5 ft 5 in Weight: 64.41 kg BMI: Neck Circumference: 12.5
== END ==
LOC: 3 N SLEEP 14:53
PROVIDERS: ATTEND Internal Medicine Critical Care Medicine
DX: R06.83 Snoring (principal); R53.82 Chronic fatigue, unspecified; Z85.3 Personal history of malignant neoplasm of breast; Z87.442 Personal history of urinary calculi
CPT/HCPCS: 99211

== ENCOUNTER → 2023-12-13 | Outpatient (CLI) | payer BC ==
--- NOTE | 2023-12-31 22:55 | P.PCN ---
Date of Procedure: 01/13/24 Operative Findings: Home sleep study testing Date of service is 12/12/2023 Pertinent history This is a 58-year-old female patient who was referred to me for sleep apnea evaluation. Patient has snoring and her has been complaining about excessive snore and she has not been told the same thing by friends and other family members. She goes to bed around 11:30 PM and she wakes up 6 AM in the morning. 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 She is almost semiretired and she is working 2 days a week. No major tiredness or fatigue or sleepiness during the day. She is functional and she is able to complete her task on the job without having to fall asleep. She does not fall asleep while driving. No history of any motor vehicle accident because of feeling drowsy or sleepy. No intake of any stimulants. She wears a retainer for teeth alignment and grinding. She is a mouth breather when she complains of a dry mouth in the morning. She has occasionally hurt herself snore. She denies having any choking or gasping for air in the middle of the night. No ni ghttime heartburn or chest pain or shortness of breath. No major medical problems and comorbidities. Her weight is up by around 10 pounds over the past 1 years. His current Climax score is at 9. No issues with memory or concentration. No anxiety. No depression. No sleep paralysis. No hallucinations. No cataplexy. No other complaints otherwise. Physical findings The patient's weight is 64.4 kg Technical description The [employer] system was used to complete this home sleep study. This is a type III home sleep study. The total recording duration was 8 hours and 35 minutes. The study started at 9:23 PM and ended at 5:59 AM. There was a total of 8023 minutes of flow monitoring and oxygen saturation monitoring. As such, this was an adequate study. Results The respiratory evaluation showed a total of 6 obstructive apneas and 57 obstructive hypopneas and the resulting AHI was 7.5 consistent with mild obstructive sleep apnea. Oxygenation analysis The patient had a total of 69 episodes of oxygen desaturation with a pulse ox plan for more than 4%. Baseline pulse ox while awake was 97%. Average pulse ox during sleep was 94% with a minimum pulse ox of 87%. Cardiac evaluation The average heart rate recorded was 64, with a minimum pulse of 50 and a maximum heart rate of 104 Assessment Obstructive sleep apnea, mild in severity with an AHI of 7.5 Chronic snoring Chronic fatigue and limited sleepiness with an Climax score of 9 History of breast cancer History of kidney stones Plan Encourage weight loss and the patient is gained around 10 pounds over the past 1 year. Sleep on his side and keep the bed elevated up around 10 to 20 degrees Principles of good sleep hygiene measures were discussed The patient has mild obstructive sleep apnea and limited hypersomnia sleepiness during the day. She has adequate functionality during the day. The patient is already wearing a retainer for grinding. She may benefit from an oral appliance for treatment of obstructive sleep apnea and the patient can discuss this with her dentist. If this measure fails to improve her sleep apnea symptoms, will consider CPAP therapy at a later stage. There is also discussed with the patient at length.
== END ==
LOC: 3 N SLEEP 16:55
PROVIDERS: ATTEND Internal Medicine Critical Care Medicine
DX: G47.33 Obstructive sleep apnea (adult) (pediatric) (principal); R53.82 Chronic fatigue, unspecified; Z85.3 Personal history of malignant neoplasm of breast; Z87.442 Personal history of urinary calculi

== ENCOUNTER → 2024-07-22 | Outpatient (CLI) | payer BC ==
--- NOTE | 2024-07-22 18:37 | CT ---
EXAMINATION TYPE: CT abdomen pelvis wo con CT DLP: 255.2 mGycm, Automated exposure control for dose reduction was used. DATE OF EXAM: 07/22/2024 4:39 PM COMPARISON: Multiple KUB radiographs with most recent 07/12/2024 CLINICAL INDICATION:Female, 59 years old with history of N20.1 CALCULUS OF URETER; Right flank pain x 2 weeks TECHNIQUE: Standard CT of the abdomen and pelvis without IV or oral contrast. Lack of IV or oral co ntrast limits evaluation of solid and hollow organ viscera. Coronal and sagittal reformats were perfo rmed. FINDINGS: LOWER CHEST: Right lower lobe 5 mm solid pulmonary nodule (series 4, image 3). ABDOMEN LIVER: Unremarkable noncontrast appearance. GALLBLADDER AND BILE DUCTS: Unremarkable noncontrast appearance. PANCREAS: Unremarkable noncontrast appearance. SPLEEN: Unremarkable noncontrast appearance. ADRENAL GLANDS: Unremarkable noncontrast appearance.. KIDNEYS AND URETERS: Moderate right hydroureteronephrosis with obstructing 4 mm calculus at the urete rovesical junction. No other right renal calculi identified. No left hydronephrosis or renal calculi. PELVIS BLADDER: Unremarkable noncontrast appearance. REPRODUCTIVE: Post hysterectomy changes. ABDOMEN & PELVIS STOMACH AND BOWEL: Stomach and duodenum are unremarkable. Few scattered distal colonic diverticula wi thout evidence for acute diverticulitis. No focal bowel wall thickening or surrounding inflammatory c hanges. The appendix is within normal limits. No evidence of bowel obstruction. PERITONEUM: No evidence of pneumoperitoneum or free fluid. VASCULATURE: No evidence of aortic aneurysm. MUSCULOSKELETAL: No acute osseous abnormalities LYMPH NODES: No gross evidence for lymphadenopathy. SOFT TISSUE/ABDOMINAL WALL: Unremarkable IMPRESSION: 1. Moderate right hydroureteronephrosis with and obstructing 4 mm calculus at the ureterovesical vita ction. 2. Colonic diverticulosis without evidence for acute diverticulitis. 3. Right lower lobe 5 mm pulmonary nodule. In a low-risk patient no follow-up is recommended. In a hi gh-risk patient consider optional CT chest in 12 months. [facility], , 07/22/2024 6:35 PM
== END | disposition home or self-care (01) ==
LOC: RADCTMAIN 15:58
PROVIDERS: ATTEND Urology
DX: N13.2 Hydronephrosis with renal and ureteral calculous obstruction (principal); K57.30 Diverticulosis of large intestine without perforation or abscess without bleeding; R91.1 Solitary pulmonary nodule
CPT/HCPCS: 74176

== ENCOUNTER → 2024-07-24 | Outpatient (CLI) | payer BC ==
--- NOTE | 2024-07-31 16:54 | P.PCN ---
Date of Procedure: 07/24/24 Operative Findings: Home sleep study testing Date of service is 07/24/2024 Pertinent history This is a 59-year-old female patient with known history of mild obstructive sleep apnea with an AHI of 7.5. The patient was given a mandibular advancement device and with subsequent adjustments, the patient snoring has subsided and she denies having any major hypersomnia or sleepiness and her functionality during the day is well-preserved. No significant weight gain. The patient has no cardiovascular complications. No new onset comorbidities. The patient is undergoing a follow-up home sleep study while wearing her oral appliance to reestablish her AHI. She has good sleep hygiene measures. Pertinent physical findings The patient has a body mass index of 21.9 with a weight of 140 pounds Technical description The [employer] system was used to complete his home sleep study. This is a type III home sleep study evaluation. This study was done while the patient was wearing her oral appliance. The total recording duration was 7 hours and 54 minutes. The recording started at 9:23 PM and ended at 5:17 AM. There was a total of 7 hours and 43 minutes of flow monitoring and oxygen saturation monitoring and as such this was an adequate study. Results The respiratory analysis showed a total of 4 obstructive apneas and 15 obstructive hypopneas. The resulting AHI was 2.5. Oxygenation analysis No evidence of any nocturnal oxygen desaturation and patient manage 2 maintain a pulse ox above 90% during this home sleep study. Cardiac analysis Average heart rate was 73 with a minimum heart rate of 60 and a maximum rate of 107 Assessment Mild obstructive sleep apnea with a baseline AHI of 7.5. The patient is clinically asymptomatic while wearing her mandibular advancement device/oral appliance. No snoring. No hypersomnia. This home sleep study was done to reevaluate the presence of sleep apnea while wearing the oral appliance. Based on his current study, the patient is AHI is down to 2.5 and treatment with a mandibular advancement device has been essentially successful. No significant nocturnal oxygen desaturations. Plan The patient is going to be reassured. The patient will be advised to continue wearing her mandibular advancement device. She needs to maintain her on body weight. Treatment is successful. She is clinically asymptomatic. Implement good sleep hygiene measures. Maintain regular sleep schedule. No further testing is needed as the patient's treatment is successful at this point.
== END ==
LOC: 3 N SLEEP 10:57
PROVIDERS: ATTEND Internal Medicine Critical Care Medicine
DX: G47.33 Obstructive sleep apnea (adult) (pediatric) (principal)

== ENCOUNTER → 2024-09-04 | Outpatient (CLI) | payer BC ==
--- NOTE | 2024-09-04 11:55 | XR ---
EXAMINATION TYPE: XR KUB DATE OF EXAM: 09/04/2024 11:22 AM COMPARISON: 07/12/2024 CLINICAL INDICATION: Female, 59 years old with history of N20.1 calculus, TECHNIQUE: XR KUB view(s) obtained. FINDINGS: Nonspecific bowel gas is present. Air and some mild fecal debris is within the colon. Psoas margins are normal. No organomegaly is present. Suspicious renal or ureteral calcifications are not identified. IMPRESSION: 1. Unremarkable Abdomen [facility], , 09/04/2024 11:53 AM
== END | disposition home or self-care (01) ==
LOC: RADXRMAIN 11:07
PROVIDERS: ATTEND Urology
DX: N20.1 Calculus of ureter (principal)
CPT/HCPCS: 74018

== ENCOUNTER → 2024-09-06 | Outpatient (CLI) | payer BC ==
--- NOTE | 2024-09-06 13:33 | CT ---
EXAMINATION TYPE: CT abdomen pelvis wo con CT DLP: 292 mGycm, Automated exposure control for dose reduction was used. DATE OF EXAM: 09/06/2024 1:27 PM COMPARISON: CT abdomen pelvis 07/22/2024, KUB radiograph 09/04/2024 CLINICAL INDICATION:Female, 59 years old with history of R20.1 calculus; flank pain TECHNIQUE: Standard CT of the abdomen and pelvis without IV or oral contrast. Lack of IV or oral co ntrast limits evaluation of solid and hollow organ viscera. Coronal and sagittal reformats were perfo rmed. FINDINGS: LOWER CHEST: No significant findings. ABDOMEN LIVER: Unremarkable noncontrast appearance. GALLBLADDER AND BILE DUCTS: Unremarkable noncontrast appearance. PANCREAS: Unremarkable noncontrast appearance. SPLEEN: Unremarkable noncontrast appearance. ADRENAL GLANDS: Unremarkable noncontrast appearance. KIDNEYS AND URETERS: No evidence of hydronephrosis or renal calculus. No ureteral calculus identified . No perinephric or periureteral fat stranding. PELVIS BLADDER: Underdistended but grossly unremarkable. REPRODUCTIVE: The uterus is surgically absent. ABDOMEN & PELVIS STOMACH AND BOWEL: Stomach and duodenum are unremarkable. Few scattered distal colon diverticula with out evidence for acute diverticulitis. No focal bowel wall thickening or surrounding inflammatory corby nges. The appendix is within normal limits. No evidence of bowel obstruction. PERITONEUM: No evidence of pneumoperitoneum or free fluid. VASCULATURE: No evidence of aortic aneurysm. MUSCULOSKELETAL: No acute osseous abnormalities LYMPH NODES: No gross evidence for lymphadenopathy. SOFT TISSUE/ABDOMINAL WALL: Unremarkable IMPRESSION: 1. No acute abdominal/pelvic process within limitations of a noncontrast exam. No obstructive uropat hy. No renal calculi. 2. Colonic diverticulosis without evidence for acute diverticulitis. [facility], , 09/06/2024 1:31 PM
== END | disposition home or self-care (01) ==
LOC: RADCTMAIN 13:13
PROVIDERS: ATTEND Urology
DX: K57.30 Diverticulosis of large intestine without perforation or abscess without bleeding (principal); R31.1 Benign essential microscopic hematuria
CPT/HCPCS: 74176